=== PATIENT | female | born 1975 | race Caucasian/White ===

== ENCOUNTER → 2017-02-28 | Outpatient (CLI) | payer BC ==
[2017-02-28 08:54] LABS: BASOPHILS % (AUTO) 0 % (0-2); EOSINOPHILS # (AUTO) 0.1 10^3uL; EOSINOPHILS % (AUTO) 2 % (0-4); LYMPHOCYTES # (AUTO) 2.5 X10^3; MEAN CORPUSCULAR HEMOGLOBIN 29.1 PG (26.0-34.0); MEAN CORPUSCULAR HGB CONC 33.2 g/dL (31.0-37.0); MEAN CORPUSCULAR VOLUME 88 FL (80-100); MEAN PLATELET VOLUME 10.1 FL (6.0-9.5); MONOCYTES # (AUTO) 0.5 X10^3; MONOCYTES % (AUTO) 6 % (3-11); NEUTROPHILS % (AUTO) 62 % (51-67); PLATELET COUNT 362 10^3uL (150-450); WHITE BLOOD COUNT 8.08 10^3uL (4.0-11.0)
[2017-02-28 09:29] LABS: ALBUMIN 4.2 g/dL (3.4-5.0); ANION GAP 13.8 MEQ/L (3-15); CALCULATED IONIZED CALCIUM 4.1 mg/dL (3.8-4.6); TOTAL PROTEIN 7.7 g/dL (6.4-8.5)
== END ==
LOC: LAB 08:13
PROVIDERS: ATTEND Obstetrics & Gynecology
DX: Z30.09 Encounter for other general counseling and advice on contraception (principal)
CPT/HCPCS: 36415; 80053; 81025; 85025

== ENCOUNTER 2017-03-07 06:22 | Day surgery (SDC) | payer BC ==
[~2017-03-07] VITALS: Ht 154.9 cm; Wt 88.2 kg
[~2017-03-07 06:22] MED LIST: ALBU6.7H IH; LACTATED RINGERS 1,000 ML IV SCH; NORG1TAB14 PO; SODIUM CHLORIDE FLUSH 3 ML SYR IV PRN
[2017-03-07 06:31] VITALS: BP 136/90
[2017-03-07] MEDS ORDERED: LIDOCAINE PF 1% (XYLOCAINE) 30 ML VIAL INJ ONE (06:53)
[2017-03-07] MEDS ORDERED: PROPOFOL 20 ML IV ONE ×2 (06:55→07:06)
[2017-03-07] MEDS ORDERED: ALFENTANIL 1,000 MCG/2 ML AMP IV ONE (06:55)
[2017-03-07] MEDS ORDERED: ONDANSETRON 2 MG/ML (Z0FRAN) 2 ML VIAL ONE (06:59)
[2017-03-07] MEDS ORDERED: MIDAZOLAM 2 MG/2 ML (VERSED) VIAL ONE (07:09)
[2017-03-07 07:48] VITALS: BP 158/89
[2017-03-07 08:05] VITALS: BP 134/99
[2017-03-07] MEDS ORDERED: HYDROcodone/APAP 5 MG/325 MG (NORCO) TAB PO PRN (08:05)
--- NOTE | 2017-03-07 08:08 | Discharge Instructions (E) ---
Discharge Instructions Instructions No restrictions at home. Call with severe bleeding, fevers or pain. Doctor's Appointment [address] Rollins Discharge Diet: Regular YEHUDA ROLLINS MD March 07, 2017 08:08
--- NOTE | 2017-03-07 09:27 | Operative Report (E) ---
Operative Report (E) 03/07/17 09:24 Pre-Operative Diagnosis: Undesired fertility Post-Operative Diagnosis: Same Procedure: Hysteroscopic sterilization with essure Surgeon: Jonathon Cooking Teacher: None Anesthesia: MAC with local EBL: 5cc Findings: Normal uterine cavity. 3 coils visible at both ostia. YEHUDA ROLLINS MD March 07, 2017 09:27
--- NOTE | 2017-03-07 10:47 | OPERATIVE REPORT ---
DATE OF OPERATION: 03/07/2017 PRE-OPERATIVE DIAGNOSIS: Undesired fertility POST-OPERATIVE DIAGNOSIS: Undesired fertility OPERATIVE PROCEDURE: Hysteroscopic sterilization with Essure SURGEON: Art Holt MD ASSOCIATE FACULTY: None ANESTHESIA: MAC with Local COMPLICATIONS: None ESTIMATED BLOOD LOSS: 5 mL SPECIMENS: None FINDINGS: Intraoperatively the patient was noted to have a normal cervix and endometrial cavity. There were 3 coils visible at the bilateral tubal ostia at the completion of the procedure. DESCRIPTION OF PROCEDURE: After confirming the validity of the informed consent, the patient was transported to the operating suite where she was placed in a dorsal lithotomy position after MAC anesthesia was initiated without difficulty. She was prepped and draped in the usual fashion and her bladder was emptied with a straight catheter. The cervix was grasped with a single-tooth tenaculum and 10 mL of 1% plain lidocaine was infiltrated into the 4 and 8 o'clock positions of the cervicovaginal junction. The hysteroscope was primed and passed into the endocervix and endometrial cavity without difficulty. The findings are as noted above. An Essure device was then cannulated into the right tubal ostium and deployed leaving 3 coils visible. A second Essure device was cannulated into the left tubal ostium and deployed leaving 3 coils visible with the ostia. The hysteroscope was removed, the single-tooth tenaculum was released and the cervix was hemostatic. All needle, sponge, and instrument counts were correct x2. The patient tolerated the procedure well and was transferred to PACU in good condition.
== END 2017-03-07 08:23 | disposition home or self-care (01) ==
LOC: ASC 06:22
PROVIDERS: ATTEND Obstetrics & Gynecology
DX: Z30.2 Encounter for sterilization (principal); J45.909 Unspecified asthma, uncomplicated; E66.9 Obesity, unspecified; Z68.36 Body mass index [BMI] 36.0-36.9, adult
CPT/HCPCS: 58565; 81025; J2001; J2250; J2405; J7120